=== PATIENT | female | born 1975 | race African-American/Black ===

== ENCOUNTER 2017-02-17 16:56 | Emergency (ER) | payer MEDICARE, MEDICAID ==
[~2017-02-17] VITALS: Ht 152.4 cm; Wt 80.0 kg
[~2017-02-17 16:56] MED LIST: AMLODIPINE; CARVEDILOL; DOCUSATE; FIORICET; GABAPENTIN; HCTZ; KLORCON; LEVETIRACETAM; LORATADINE; PHENYTOIN; PRAVASTATIN; TEMAZEPAM; [UNRECOGNIZED DRUG - OTHER]
[2017-02-17] MEDS ORDERED: KETOROLAC 30MG/ML VIAL IM ONE (18:30)
[2017-02-17 18:48] LABS: CLARITY URINE CLOUDY (CLEAR); COLOR URINE DARK YELLOW (YELLOW); GLUCOSE URINE NEGATIVE (NEGATIVE); KETONES URINE TRACE (NEGATIVE); LEUKOCYTE ESTERASE URINE 3+ (NEGATIVE); NITRITE URINE POSITIVE (NEGATIVE); OCCULT BLOOD URINE 3+ (NEGATIVE); PH URINE 7.5 (4.5-8.0); PROTEIN URINE 1+ (NEGATIVE); SPECIFIC GRAVITY URINE 1.034 (1.005-1.030)
[2017-02-17 19:04] LABS: BASOPHILS % 1.3 % (0.0-2.0); EOSINOPHILS % 3.5 % (0.0-5.0); HEMATOCRIT. 30.8 % (36.0-48.0); HEMOGLOBIN. 10.3 g/dL (12.0-16.0); LYMPHOCYTES % 17.4 % (20.0-50.0); MEAN CORPUSCULAR HEMOGLOBIN 31.4 pg (28.0-32.0); MEAN CORPUSCULAR VOLUME 93.9 fL (81.0-99.0); MEAN PLATELET VOLUME 8.9 fl (7.4-10.4); MONOCYTES % 8.1 % (2.0-8.0); NEUTROPHILS % 69.7 % (40.0-76.0); PLATELET 306 x1000/uL (130-400); RED BLOOD CELL COUNT 3.28 mill/uL (4.2-5.4); RED CELL DISTRIBUTION WIDTH 15.5 % (11.6-14.6)
[2017-02-17 19:08] LABS: CHLORIDE 106 mEq/L (98-107)
[2017-02-17 19:16] LABS: CARBON DIOXIDE 26 mEq/L (21-32)
[2017-02-17 21:08] VITALS: BP 118/88
== END 2017-02-17 21:18 | disposition home or self-care (01) ==
LOC: ER 17:29
DX: N39.0 Urinary tract infection, site not specified (principal); B37.9 Candidiasis, unspecified; G43.909 Migraine, unspecified, not intractable, without status migrainosus; J45.909 Unspecified asthma, uncomplicated; Z88.0 Allergy status to penicillin; Z88.2 Allergy status to sulfonamides; Z79.899 Other long term (current) drug therapy; I10 Essential (primary) hypertension
CPT/HCPCS: 36415; 80053; 81001; 81025; 85025; 96372; 99284; J1885